=== PATIENT | female | born 1955 | race Caucasian/White ===

== ENCOUNTER 2016-06-01 15:56 | Emergency (ER) | payer OTHER ==
[2016-06-01 18:21] VITALS: BP 150/64
--- NOTE | 2016-06-01 19:50 | ED ---
Lower Extremity - HPI Summary HPI Summary: 61F presents with right foot injury to top of foot yesterday. She states she had a stroke a couple weeks ago and does not have much feeling on right side. She believes she stepped wrong off stair when get out of car as needs step stool to get in and out of car. states since then has had pain on top of foot. Has limited sensation at baseline since stroke. still able to move ankle and toes. - History of Current Complaint Chief Complaint: EDExtremityLower Stated Complaint: RT FOOT INJURY Time Seen by Provider: 06/01/16 18:42 Pain Intensity: 9 - Allergies/Home Medications Allergies/Adverse Reactions: Allergies Allergy/AdvReac Type Severity Reaction Status Date / Time No Known Allergies Allergy Verified 09/25/14 15:59 PMH/Surg Hx/FS Hx/Imm Hx Endocrine/Hematology History: Reports: Hx Diabetes Cardiovascular History: Reports: Hx Coronary Artery Disease, Hx Hypercholesterolemia, Hx Hypertension Denies: Hx Pacemaker/ICD GI History: Reports: Hx Gastroesophageal Reflux Disease Musculoskeletal History: Reports: Hx Arthritis - fingers Sensory History: Reports: Hx Contacts or Glasses Denies: Hx Hearing Aid Opthamlomology History: Reports: Hx Contacts or Glasses Neurological History: Reports: Hx CVA Psychiatric History: Reports: Hx Anxiety, Hx Depression Denies: Hx Panic Disorder - Cancer History Hx Chemotherapy: No Hx Radiation Therapy: No - Surgical History Surgery Procedure, Year, and Place: appendectomy 2008 Hx Anesthesia Reactions: No Infectious Disease History: Denies: Traveled Outside the [place] in Last 30 Days - Family History Known Family History: Positive: Cardiac Disease - Social History Alcohol Use: Occasionally Alcohol Amount: glass of wine Substance Use Type: Reports: None Smoking Status (MU): Never Smoked Tobacco Review of Systems Negative: Fever Negative: Chest Pain Negative: Shortness Of Breath Positive: Myalgia - right foot pain All Other Systems Reviewed And Are Negative: Yes Physical Exam Triage Information Reviewed: Yes Vital Signs On Initial Exam: Initial Vitals Temp Pulse Resp BP Pulse Ox 97.1 F 68 16 179/67 98 06/01/16 16:17 06/01/16 16:17 06/01/16 16:17 06/01/16 16:17 06/01/16 16:17 Vital Signs Reviewed: Yes Appearance: Positive: Well-Appearing Skin: Positive: Warm, Dry Head/Face: Positive: Normal Head/Face Inspection Eyes: Positive: Normal, Conjunctiva Clear Respiratory/Lung Sounds: Positive: Clear to Auscultation, Breath Sounds Present Cardiovascular: Positive: Normal, RRR Musculoskeletal: Positive: Strength/ROM Intact - of right foot, Other - good pulses, has limited sensition at baseline. able to feel pain over top of extensor tendons of right foot, no step off noted. capillary refill <2 secs Diagnostics - Vital Signs Vital Signs Temp Pulse Resp BP Pulse Ox 06/01/16 18:20 97.1 F 73 16 150/64 98 06/01/16 17:13 96.7 F 66 16 165/71 100 06/01/16 16:17 97.1 F 68 16 179/67 98 - Laboratory Lab Statement: Any lab studies that have been ordered have been reviewed, and results considered in the medical decision making process. - Radiology foot Xray Interpretation: Positive (See Comments) - IMPRESSION: Degenerative changes of the cuneiform metatarsal joints without fracture. Radiology Interpretation Completed By: Radiologist Lower Extremity Course/Dx - Course Course Of Treatment: 61F presents with right foot pain s/p possible stepping on it wrong yesterday. has decreased sensation in foot since stroke a couple weeks ago. able to move and walk on foot. states pain is greatest over top of foot. on exam pain noted along extensor digitorium tendons of foot. xray shows degenerative changes. unclear if pain is due to degenerative changes or due to tendonitis. will treat conservatively. patient understands and agrees with plan - Diagnoses Differential Diagnosis/HQI/PQRI: Positive: Contusion, Fracture (Closed), Sprain , Strain Provider Diagnoses: Right foot pain Discharge - Discharge Plan Condition: Good Disposition: HOME Patient Education Materials: Foot Sprain (ED) Referrals: Tenzin Samuels MD [Primary Care Provider] - Additional Instructions: Ice, elevate, rest Take Tylenol for pain every 6 hours Stretch out calf muscles Wear well fitting shoes Follow up with primary within 5 days Return to ED if develop any new or worsening symptoms
--- NOTE | 2016-06-01 20:03 | RAD ---
Indication: Right foot injury. 3 views of the right foot demonstrates degenerative changes of the cuneiforms metatarsal joint with dorsal osteophyte formation. No fracture is identified. IMPRESSION: Degenerative changes of the cuneiform metatarsal joints without fracture.
== END 2016-06-01 20:21 | disposition home or self-care (01) ==
LOC: ED 15:56
DX: M79.671 Pain in right foot (principal)
CPT/HCPCS: 99281

== ENCOUNTER 2016-06-15 23:43 | Emergency (ER) | payer OTHER ==
[2016-06-16] MEDS ORDERED: Aspirin Low Dose CHEW TAB* 81 MG PO ONE (03:38)
[2016-06-16] MEDS ORDERED: Azithromycin TAB* 250 MG PO ONE (04:26)
--- NOTE | 2016-06-16 05:14 | ED ---
Aaron Tamez Adam, scribed for Abhinav Ray on 06/16/16 at 0331 . Complex/Multi-Sys Presentation - HPI Summary HPI Summary: Pt is a 61 year old female presenting with chief complaint of chest congestion. She states that she has been coughing for 3 weeks now, producing yellowish/ green phlegm. She denies abdominal pain and fever. She denies tobacco use. She has chronic right-sided weakness s/p CVA. She is able to walk around with a cane. She denies asthma, COPD, and cardiac disease. - History Of Current Complaint Chief Complaint: EDUpperRespComplaint Time Seen by Provider: 06/16/16 03:16 Hx Obtained From: Patient Onset/Duration: Gradual Onset, Lasting Weeks, Still Present Timing: Constant Severity Currently: Moderate Severity Initially: Moderate Associated Signs And Symptoms: Positive: Cough - Producing yellowish/green phlegm, Other - Chest congestion. Negative: Abdominal Pain, Fever - Allergies/Home Medications Allergies/Adverse Reactions: Allergies Allergy/AdvReac Type Severity Reaction Status Date / Time No Known Allergies Allergy Verified 06/15/16 23:52 PMH/Surg Hx/FS Hx/Imm Hx Endocrine/Hematology History: Reports: Hx Diabetes Cardiovascular History: Reports: Hx Coronary Artery Disease, Hx Hypercholesterolemia, Hx Hypertension Denies: Hx Pacemaker/ICD GI History: Reports: Hx Gastroesophageal Reflux Disease Musculoskeletal History: Reports: Hx Arthritis - fingers Sensory History: Reports: Hx Contacts or Glasses Denies: Hx Hearing Aid Opthamlomology History: Reports: Hx Contacts or Glasses Neurological History: Reports: Hx CVA Psychiatric History: Reports: Hx Anxiety, Hx Depression Denies: Hx Panic Disorder - Cancer History Hx Chemotherapy: No Hx Radiation Therapy: No - Surgical History Surgery Procedure, Year, and Place: appendectomy 2008 Hx Anesthesia Reactions: No Infectious Disease History: No Infectious Disease History: Denies: Traveled Outside the [place] in Last 30 Days - Family History Known Family History: Positive: Cardiac Disease - Social History Occupation: Disabled Lives: With Family - Alcohol Use: Occasionally Alcohol Amount: glass of wine Hx Substance Use: No Substance Use Type: Reports: None Hx Tobacco Use: No Smoking Status (MU): Never Smoked Tobacco Review of Systems Negative: Fever Positive: Cough, Other - Chest congestion Negative: Abdominal Pain All Other Systems Reviewed And Are Negative: Yes Physical Exam Triage Information Reviewed: Yes Vital Signs On Initial Exam: Initial Vitals Temp Pulse Resp BP Pulse Ox 97.6 F 66 16 166/45 97 06/15/16 23:45 06/15/16 23:45 06/15/16 23:45 06/15/16 23:45 06/15/16 23:45 Vital Signs Reviewed: Yes Appearance: Positive: Well-Appearing, No Pain Distress Skin: Positive: Warm, Skin Color Reflects Adequate Perfusion, Dry Head/Face: Positive: Normal Head/Face Inspection Eyes: Positive: EOMI, EMILY ENT: Positive: Normal ENT inspection Neck: Positive: Supple, Nontender Respiratory/Lung Sounds: Positive: Clear to Auscultation, Breath Sounds Present Cardiovascular: Positive: RRR, Pulses are Symmetrical in both Upper and Lower Extremities Abdomen Description: Positive: Nontender, Soft Bowel Sounds: Positive: Present Musculoskeletal: Positive: Normal, Strength/ROM Intact Neurological: Positive: Other - Right hemiparesis s/p CVA Diagnostics - Vital Signs Vital Signs Temp Pulse Resp BP Pulse Ox 06/16/16 01:10 98.1 F 64 16 179/77 96 06/15/16 23:45 97.6 F 66 16 166/45 97 - Laboratory Lab Statement: Any lab studies that have been ordered have been reviewed, and results considered in the medical decision making process. - Radiology CXR Radiology Interpretation Completed By: ED Physician - Right lower lobe haziness. Re-Evaluation - Re-Evaluation First Eval Re-Evaluation Time: 04:25 - Discussed results of Chest X-Ray. Patient will sign out AMA. Complex Multi-Symp Course/Dx Course Of Treatment: Patient refuses to have EKG or any labs done. - Diagnoses Provider Diagnoses: Pneumonia Discharge - Discharge Plan Condition: Stable Disposition: AGAINST MEDICAL ADVICE Prescriptions: Azithromycin TAB* [Zithromax TAB (Z-GINGER) 250 mg #6 tabs] 250 mg PO DAILY #4 tab Patient Education Materials: Bacterial Pneumonia (ED) Referrals: Tenzin Samuels MD [Primary Care Provider] - Additional Instructions: Follow up with your Primary Care Provider. The documentation as recorded by the Aaron grijalva Adam accurately reflects the service I personally performed and the decisions made by , Abhinav Ray.
[2016-06-16 05:20] VITALS: BP 192/80
--- NOTE | 2016-06-16 09:56 | RAD ---
Indication: Shortness of breath. 2 views of the chest including dual energy PA views demonstrate no mediastinal shift. Heart is mildly enlarged. Lung perkins demonstrate no pleural fluid, pneumonia or pneumothorax. IMPRESSION: No active cardiopulmonary disease is identified.
== END 2016-06-16 04:35 | disposition left against medical advice (07) ==
LOC: ED 23:43
DX: J18.9 Pneumonia, unspecified organism (principal); R09.89 Other specified symptoms and signs involving the circulatory and respiratory systems; R05 Cough
CPT/HCPCS: 71020; 99283; A9270-GY

== ENCOUNTER 2018-03-31 15:05 | Inpatient (IN) | payer MEDICARE ==
[2018-03-31 15:41] LABS: Influenza A Molecular POSITIVE (Negative)
[2018-03-31] MEDS ORDERED: cefTRIAXone(*) 1 GM in NS 0.9% 50 ML* 50 ML IVPB ONE (16:04)
[2018-03-31] MEDS ORDERED: Azithromycin IV(*) 500 MG in NS 0.9% 250 ML* 250 ML IVPB ONE (16:04)
[2018-03-31] MEDS ORDERED: Oseltamivir CAP* 75 MG CAP PO ONE (16:04)
[2018-03-31] MEDS ORDERED: NS 0.9% IV ONE (16:06)
--- NOTE | 2018-03-31 16:41 | ED ---
Shortness of Breath - HPI Summary HPI Summary: A 62 y/o female presents to [facility] with a chief complaint of SOB since 03/28/18. She reports SOB, cough, fever, chills and a headache. A temperature of 100.6 is noted in the ED. The patient denies body aches, erythema (eyes), sore throat, chest pain, abdominal pain, vomiting, nausea, dysuria, hematuria, myalgia, edema , rash and dizziness. She does not wear O2 at home. At triage her O2 Sat was 87. In the ED room on O2 her O2 Sat was 92, BP was 179/139 and her HR was 136 bpm. The patient reports that she is a non-smoker. She has DM and takes a low dosage of insulin and metformin for DM. She claims that her sugars have been good and that she did get her flu shot this year. She denies a Hx of COPD or emphysema. Her PCP is Dr. Samuels. - History of Current Complaint Chief Complaint: EDShortnessOfBreath Hx Obtained From: Patient Onset/Duration: Sudden Onset, Lasting Days, Still Present Timing: Constant Current Severity: Moderate Dyspnea At: Rest Aggrevating Factors: Nothing Alleviating Factors: Oxygen Associated Signs & Symptoms: Cough (Productive), Fever, Chills - Allergy/Home Medications Allergies/Adverse Reactions: Allergies Allergy/AdvReac Type Severity Reaction Status Date / Time No Known Allergies Allergy Verified 06/15/16 23:52 Home Medications: Home Medications Aspirin 81 mg CHEW TAB* 81 mg PO DAILY 03/31/18 [History Confirmed 03/31/18] Atorvastatin* [Lipitor 80 MG*] 80 mg PO DAILY 03/31/18 [History Confirmed ] Clopidogrel TAB* [Plavix TAB*] 75 mg PO DAILY 03/31/18 [History Confirmed ] DULoxetine DR CAP* [Cymbalta CAP*] 30 mg PO DAILY 03/31/18 [History Confirmed ] DULoxetine DR CAP* [Cymbalta CAP*] 60 mg PO DAILY 03/31/18 [History Confirmed ] Hydrochlorothiazide TAB* [Hydrodiuril TAB*] 50 mg PO QAM 03/31/18 [History Confirmed 03/31/18] Insulin Glargine (Nf) [Toujeo Solostar Pen (NF)] 30 unit SUBCUT DAILY 03/31/18 [ History Confirmed 03/31/18] Liraglutide (NF) [Victoza (NF)] 1.8 mg SUBCUT DAILY 03/31/18 [History Confirmed 03/31/18] Lisinopril TAB* [Prinivil TAB 10 MG*] 40 mg PO DAILY 03/31/18 [History Confirmed 03/31/18] Metoprolol Tartrate TAB* [Lopressor TAB*] 50 mg PO TID 03/31/18 [History Confirmed 03/31/18] hydrALAZINE TAB* [Apresoline TAB*] 25 mg PO TID 03/31/18 [History Confirmed 06/13] metFORMIN* [Glucophage 1000 MG TAB *] 1,000 mg PO BID 03/31/18 [History Confirmed 03/31/18] PMH/Surg Hx/FS Hx/Imm Hx Endocrine/Hematology History: Reports: Hx Diabetes Cardiovascular History: Reports: Hx Coronary Artery Disease, Hx Hypercholesterolemia, Hx Hypertension - CONTROLLED ON MEDS Denies: Hx Pacemaker/ICD GI History: Reports: Hx Gastroesophageal Reflux Disease Musculoskeletal History: Reports: Hx Arthritis - fingers Sensory History: Reports: Hx Contacts or Glasses Denies: Hx Hearing Aid Opthamlomology History: Reports: Hx Contacts or Glasses Neurological History: Reports: Hx CVA Psychiatric History: Reports: Hx Anxiety, Hx Depression Denies: Hx Panic Disorder - Cancer History Hx Chemotherapy: No Hx Radiation Therapy: No - Surgical History Surgery Procedure, Year, and Place: appendectomy 2008 Hx Anesthesia Reactions: No Infectious Disease History: No Infectious Disease History: Denies: Traveled Outside the [place] in Last 30 Days - Family History Known Family History: Positive: Cardiac Disease - Social History Alcohol Use: Occasionally Alcohol Amount: glass of wine Hx Substance Use: No Substance Use Type: Reports: None Hx Tobacco Use: No Smoking Status (MU): Never Smoked Tobacco Review of Systems Positive: Fever, Chills Negative: Erythema Negative: Sore Throat Negative: Chest Pain Positive: Shortness Of Breath, Cough Negative: Abdominal Pain, Vomiting, Nausea Negative: dysuria, hematuria Musculoskeletal: Negative - body aches Negative: Myalgia, Edema Negative: Rash Positive: Headache All Other Systems Reviewed And Are Negative: Yes Physical Exam - Summary Physical Exam Summary: Constitutional: Well-developed, Well-nourished, Alert. (-) Distressed Skin: Hot to the touch, Dry HENT: Normocephalic; Atraumatic Eyes: Conjunctiva normal Neck: Musculoskeletal ROM normal neck. (-) JVD, (-) Stridor, (-) Tracheal deviation Cardio: Rhythm regular, rate normal, Heart sounds normal; Intact distal pulses; The pedal pulses are 2+ and symmetric. Radial pulses are 2+ and symmetric. (-) Murmur Pulmonary/Chest wall: Effort normal. (-) Respiratory distress, (+) Wheezes, (-) Rales Abd: Soft, (-) epigastric tenderness, (-) Distension, (-) Guarding, (-) Rebound Musculoskeletal: (-) Edema Lymph: (-) Cervical adenopathy Neuro: Alert, Oriented x3 Psych: Mood and affect Normal Triage Information Reviewed: Yes Vital Signs On Initial Exam: Initial Vitals Temp Pulse Resp BP Pulse Ox 99.2 F 131 24 162/79 87 03/31/18 15:10 03/31/18 15:10 03/31/18 15:10 03/31/18 15:10 03/31/18 15:10 Vital Signs Reviewed: Yes Diagnostics - Vital Signs Vital Signs Temp Pulse Resp BP Pulse Ox 03/31/18 15:10 99.2 F 131 24 162/79 87 - Laboratory Lab Results: Lab Results 03/31/18 Range/Units 15:36 Influenza A (Rapid) Positive A (Negative) Result Diagrams: 04/02/18 05:56 04/02/18 05:56 Lab Statement: Any lab studies that have been ordered have been reviewed, and results considered in the medical decision making process. - Radiology CXR Radiology Interpretation Completed By: Radiologist Summary of Radiographic Findings: 1. BILATERAL INFILTRATES. 2. FINDINGS SUGGESTIVE OF COPD. ED physician has reviewed this imaging report. Course/Dx - Course Course Of Treatment: A 62 y/o female presents to [facility] with a chief complaint of SOB since 03/28/18. She reports SOB, cough, fever, chills and a headache. The physical exam revelaed that the patient was wheezing and hot to the touch. CXR impression: 1. BILATERAL INFILTRATES. 2. FINDINGS SUGGESTIVE OF COPD. Lab results obtained. She was influenza A positive. Lactic acid high at .6 and Troponin high at 0.04 at 16:53. In the ED course the patient was given Duoneb INH, Tylenol PO and Tamiflu PO. Case discussed with Dr. Lay, hospitalist, who accepted the patient for admission. - Diagnoses Provider Diagnoses: Influenza, Hypoxia, Sepsis, Community acquired pneumonia - Physician Notifications Discussed Care of Patient With: Sebas Lay Time Discussed With Above Provider: 16:59 Instructed by Provider To: Admit As Inpatient Discharge - Sign-Out/Discharge Documenting (check all that apply): Patient Departure - admit Patient Received Moderate/Deep Sedation with Procedure: No - Discharge Plan Condition: Improved Disposition: ADMITTED TO [facility] - Billing Disposition and Condition Condition: IMPROVED Disposition: Admitted to [facility] - Attestation Statements Document Initiated by Scribe: Yes Documenting Scribe: Ricky Giron Provider For Whom Cristo is Documenting (Include Credential): Tenzin Garza MD Scribe Attestation: Ricky Tamez, scribed for Tenzin Garza MD on 04/04/18 at 1031. Scribe Documentation Reviewed: Yes Provider Attestation: The documentation as recorded by the Ricky grijalva accurately reflects the service I personally performed and the decisions made by Tenzin chavez MD Status of Scribe Document: Viewed
[2018-03-31] MEDS ORDERED: Acetaminophen TAB* 325 MG PO ONE (16:43)
[2018-03-31] MEDS ORDERED: Albuterol/Ipratropium NEB.SOL* Albuterol 2.5 MG/Ipratropium 0.5 MG 3 ML INH ONE (16:43)
[2018-03-31 17:04] LABS: ABS Basophils 0.1 10^3/ul (0-0.2); ABS Eosinophils 0 10^3/ul (0-0.6); ABS Monocytes 0.9 10^3/ul (0-0.8); ABS Nucleated RBC 0 10^3/ul; Eosinophil % 0.2 %; Hematocrit 42 % (35-47); Hemoglobin 13.9 g/dl (12.0-16.0); Lymphocyte % 10.8 %; Mean Corpuscular HGB Conc 33 g/dl (31-36); Mean Corpuscular Hemoglobin 29 pg (27-31); Mean Corpuscular Volume 86 fL (80-97); Mean Platelet Volume 10.2 fL (7.4-10.4); Nucleated Red Blood Cells % 0.1; Platelet Count 279 10^3/ul (150-450); Red Blood Count 4.88 10^6/ul (4.00-5.40); Red Cell Distribution Width 14 % (10.5-15)
[2018-03-31 17:30] LABS: Troponin I 0.04 ng/mL (<0.04)
[2018-03-31 17:32] LABS: Activated Partial Thrombo Time 27.3 seconds (26.0-36.3); INR 0.98 (0.77-1.02)
[2018-03-31 17:38] LABS: Albumin 4.3 g/dL (3.2-5.2); Albumin/Globulin Ratio 1.2 (1-3); BUN/Creatinine Ratio 10.2 (8-20); Calcium 9.4 mg/dL (8.6-10.3); EGFR African American 56.2 (>60); EGFR Non-African American 46.4 (>60); Globulin 3.7 g/dL (2-4); Potassium 3.7 mmol/L (3.5-5.0); Total Bilirubin 0.7 mg/dL (0.2-1.0)
[2018-03-31 17:54] LABS: C Reactive Protein 136.67 mg/L (<8.01)
[2018-03-31] MEDS ORDERED: Dextrose 50% Syringe 50 ML* 25 GM/50 ML SYRINGE IV PUSH PRN (18:25)
[2018-03-31] MEDS ORDERED: Acetaminophen TAB* 325 MG PO PRN (18:44)
[2018-03-31] MEDS ORDERED: NS 0.9% 1000 ML** 1,000 ML IV SCH (19:00)
[2018-03-31 20:55] LABS: Urine Appearance Clear; Urine Bacteria Absent (Absent); Urine Bilirubin Negative (Negative); Urine Blood Negative (Negative); Urine Color Yellow; Urine Glucose Negative (Negative); Urine Ketones Negative (Negative); Urine Nitrite Negative (Negative); Urine Protein 1+(30 mg/dL) (Negative); Urine Red Blood Cell Trace(0-2/hpf) (Absent); Urine Specific Gravity 1.008 (1.010-1.030); Urine Squamous Epithelial Cell Present (Absent); Urine Urobilinogen Negative (Negative); Urine White Blood Cell 1+(6-10/hpf) (Absent)
--- NOTE | 2018-03-31 21:33 | HP ---
HISTORY AND PHYSICAL: DATE OF ADMISSION: 03/31/18 ADMITTING PROVIDER: Jerome Aviles MD PRIMARY CARE PROVIDER: Dr. Tenzin Samuels CHIEF COMPLAINT: Fevers, chills, shortness of breath, nonproductive cough. HISTORY OF PRESENT ILLNESS: Cristal Osorio is a 62-year-old female with past medical history of multiple CVAs; hypertension, on multiple agents; hyperlipidemia; insulin-dependent diabetes mellitus; anxiety; depression; GERD, who on 03/28/18, three days prior to admission, started to develop fevers and the sensation of hot and cold alternating next day along with shortness of breath and a nonproductive cough. She had a headache the next day, symptoms have been progressive and has not been able to sleep very well. Of note, both her son and grandson, who she lives with, were diagnosed with influenza the week prior. She presented to the [facility] and was noted to have a fever reportedly of 100.6, was tachycardic to the 130s and saturating 87% on room air initially. Chest x-ray was concerning for bilateral infiltrates and a rapid flu swab was positive for influenza A. She has a lactic acidosis of 3.6, CRP of 136, troponin of 0.04. She denies any chest pain. Her mobility is limited ever since her strokes of 2010, and especially 2016. She was referred to the hospitalist service for sepsis secondary to influenza with bilateral pneumonia source. PAST MEDICAL HISTORY: CVAs in 2010 and 2016, hypertension, hyperlipidemia, anxiety, depression, GERD. PAST SURGICAL HISTORY: Appendectomy. MEDICATIONS: Include: 1. Metoprolol tartrate 50 mg t.i.d. 2. Lisinopril 40 mg daily. 3. Victoza 1.8 mg subcutaneous daily. 4. Toujeo 30 units daily. 5. Hydralazine 25 mg t.i.d. 6. Duloxetine 30 plus 60 mg for a total of 90 mg daily. 7. Metformin 1000 mg p.o. b.i.d. 8. Hydrochlorothiazide 50 mg daily. 9. Atorvastatin 80 mg daily. 10. Aspirin 81 mg daily. 11. Plavix 75 mg daily. ALLERGIES: No known drug allergies. FAMILY HISTORY: Mother of heart attack at age 59, father of heart attack at age 72. She has 2 brothers, one of who has had what sounds like an LVAD and is being evaluated for possible heart transplant. It sounds like 1 sister has had open heart surgery. SOCIAL HISTORY: The patient denies any smoking history. Denies alcohol or drug use. Currently is disabled after her strokes. Medical surrogate is , Izaiah Osorio. She desires to be a full code. REVIEW OF SYSTEMS: A complete 14-point review of systems is negative except as per HPI. She denies any abdominal pain, chest pain, nausea, vomiting, diarrhea , constipation, rashes, recent travel, neck stiffness, blurry vision. She does attest chronic right lower extremity paresthesias and numbness since her stroke and some reduced strength on the right side of her body. She does not need any assistive devices with walking, although she previously did spend 3 months in [facility] in 2016, recovering from her stroke. PHYSICAL EXAMINATION GENERAL APPEARANCE: In no acute distress. VITAL SIGNS: Temperature here 99.2; pulse rate 131; respiratory rate 24; satting initially 87% on room air, currently 97% on 3 L; blood pressure 162/79. HEENT: Normocephalic, atraumatic. Pupils are equal, round, and reactive to light. Extraocular motions are intact. No scleral icterus. Moist mucous membranes. NECK: No cervical lymphadenopathy. Neck supple. LUNGS: Some rhonchi at the left mid lung. No wheezing or rales. CARDIOVASCULAR: Tachycardic. Systolic 3/6 ejection murmur across the precordium. ABDOMEN: Soft, nontender, nondistended, but obese. EXTREMITIES: Warm, well perfused. No peripheral edema. NEUROLOGIC: Cranial nerves II through XII intact. Set Up Mechanic Automatic Line strength intact. She has decreased sensation in the right lower extremity. She has intact plantar and dorsiflexion. SKIN: No lesions or rashes. DIAGNOSTIC STUDIES/LABORATORY DATA: White count 9.0, hematocrit 42, hemoglobin 13.9, platelet 279. INR 0.98. Sodium 139, potassium 3.7, chloride 99, carbon dioxide 28, anion gap 12, BUN 12, creatinine 1.18, GFR 46, glucose 183, lactic acid 3.6, calcium 9.4. Total bili 0.7, AST 21, ALT 17, alk phos 79. Troponin 0.04. CRP 136.7. Albumin 4.3. Influenza A serology positive. Urinalysis pending. IMAGING: Chest x-ray demonstrated bilateral infiltrates and findings suggestive of COPD, more specifically, there are patchy infiltrates in the right lung field and left lung base. EKG demonstrates sinus tachycardia, heart rate 120s, Q waves in lead III. Normal axis. Wandering baseline. No ST elevations or depressions and poor R- wave progression, QTc of 492. ASSESSMENT AND PLAN: Ms. Cristal Osorio is a 62-year-old female with past medical history of resistant hypertension on 4 agents, insulin-dependent diabetes mellitus, hyperlipidemia, gastroesophageal reflux disease, anxiety, depression, presenting with sepsis secondary to bilateral pneumonia and influenza A in the setting of familial contacts with influenza. She has a lactic acidosis of 3.6. She is getting a sepsis fluid bolus in the emergency room. She has been started on Tamiflu. I will continue that renally dosed at 30 b.i.d. she has gotten ceftriaxone and azithromycin for community-acquired pneumonia, potentially post influenza streptococcal pneumonia though might be a bit early for that. We will repeat the lactic acid to normalize and get a strep and legionella urine antigens, sputum culture, follow up blood cultures. She is tachypneic, tachycardic and has lactic acidosis. Can continue her metoprolol 50 t.i.d. Blood pressure is preserved, in fact hypertensive. I am going to continue her lisinopril 40 tomorrow, hydrochlorothiazide 50 tomorrow, and hydralazine 25 p.o. t.i.d. Continue her Cymbalta 90 mg total daily. Continue hHer aspirin and Plavix for history of stroke. We are going to continue her on maintenance fluid overnight, 100 cc an hour for 15 hours, Tylenol p.r.n. for fevers or headaches. For her elevated troponins, no ischemic changes on EKG, I suspect some demand ischemia in the setting of sepsis. We will trend q.3 hours or until peak, repeat EKG in the morning if still concerned. She denies any chest pain. I note she had a negative stress test workup last year and an echocardiogram 04/03/17 with its preserved ejection fraction of 60% to 65% and [id number] aortic stenosis. Does have prominent aortic stenosis murmur on exam here in the setting of hyperdynamic tachycardia. She is admitted to inpatient status. She is a full code. Medical surrogate is , Izaiah Osorio. [id number]/CPS #: [id number] MTDD
[2018-03-31] MEDS: Insulin GLARGINE(*) 1 UNITS UNIT SUBCUT SCH (22:04)
[2018-03-31] MEDS: Metoprolol Tartrate TAB* 50 mg PO SCH (22:04)
[2018-03-31] MEDS: Insulin LISPRO* 1 UNITS UNIT SUBCUT SCH (22:04)
[2018-03-31] MEDS: Enoxaparin(*) 40 MG/0.4 ML SYR SUBCUT SCH (22:05)
[2018-04-01] MEDS ORDERED: NS 0.9% 1000 ML** 1,000 ML IV SCH (00:52)
[2018-04-01 07:21] LABS: ABS Basophils 0.1 10^3/ul (0-0.2); ABS Eosinophils 0.1 10^3/ul (0-0.6); ABS Lymphocytes 1.4 10^3/ul (1.0-4.8); ABS Neutrophils 5.4 10^3/ul (1.5-7.7); ABS Nucleated RBC 0 10^3/ul; Eosinophil % 1.2 %; Hematocrit 37 % (35-47); Hemoglobin 12.3 g/dl (12.0-16.0); Mean Corpuscular HGB Conc 34 g/dl (31-36); Mean Corpuscular Hemoglobin 29 pg (27-31); Mean Corpuscular Volume 86 fL (80-97); Mean Platelet Volume 9.6 fL (7.4-10.4); Nucleated Red Blood Cells % 0; Platelet Count 242 10^3/ul (150-450); Red Blood Count 4.26 10^6/ul (4.00-5.40); Red Cell Distribution Width 15 % (10.5-15)
[2018-04-01] MEDS: Insulin LISPRO* 1 UNITS UNIT SUBCUT SCH ×4 (07:29→21:46)
[2018-04-01 07:40] LABS: BUN/Creatinine Ratio 11.2 (8-20); Calcium 8.6 mg/dL (8.6-10.3); EGFR African American 77.8 (>60); EGFR Non-African American 64.3 (>60); Potassium 3.7 mmol/L (3.5-5.0)
[2018-04-01] MEDS ORDERED: Insulin GLARGINE(*) 1 UNITS UNIT SUBCUT SCH (08:00)
[2018-04-01] MEDS: DULoxetine DR CAP* 30 MG CAP.DR PO SCH (08:02)
[2018-04-01] MEDS: Metoprolol Tartrate TAB* 50 mg PO SCH ×3 (08:02→21:46)
[2018-04-01] MEDS: hydrALAZINE TAB* 25 MG PO SCH ×3 (08:02→21:45)
[2018-04-01] MEDS: Atorvastatin* 80 MG TAB PO SCH (08:02)
[2018-04-01] MEDS: Oseltamivir CAP* 30 MG CAP PO SCH ×2 (08:02→21:45)
[2018-04-01] MEDS: Hydrochlorothiazide TAB* 50 MG PO SCH (08:02)
[2018-04-01] MEDS: DULoxetine DR CAP* 60 MG CAP.DR PO SCH (08:02)
[2018-04-01] MEDS: Lisinopril TAB* 10 MG PO SCH (08:03)
[2018-04-01] MEDS: Aspirin 81 mg CHEW TAB* 81 MG TAB.CHEW PO SCH (08:03)
[2018-04-01] MEDS: Clopidogrel TAB* 75 MG PO SCH (08:03)
[2018-04-01] MEDS ORDERED: Pneumococcal *Vac Polyvalent 0.5 ML VIAL IM ONE (10:00)
--- NOTE | 2018-04-01 10:54 | PN ---
Subjective Date of Service: 04/01/18 Interval History: Less SOB today, less cough. No new c/o. Objective Active Medications: Acetaminophen (Tylenol Tab*) 650 mg PO Q6H PRN PRN Reason: FEVER/HEADACHE Aspirin (Aspirin 81 Mg Chew Tab*) 81 mg PO DAILY [facility] [place] Last Admin: 04/01/18 08:03 Dose: 81 mg Atorvastatin Calcium (Lipitor*) 80 mg PO DAILY [facility] [place] Last Admin: 04/01/18 08:02 Dose: 80 mg Clopidogrel Bisulfate (Plavix Tab*) 75 mg PO DAILY [facility] [place] Last Admin: 04/01/18 08:03 Dose: 75 mg Dextrose (D50w Syringe 50 Ml*) 12.5 gm IV PUSH .FOR FS < 60 - SS PRN PRN Reason: FS < 60 Duloxetine HCl (Cymbalta Cap*) 60 mg PO DAILY [facility] [place] Last Admin: 04/01/18 08:02 Dose: 60 mg Duloxetine HCl (Cymbalta Cap*) 30 mg PO DAILY [facility] [place] Last Admin: 04/01/18 08:02 Dose: 30 mg Enoxaparin Sodium (Lovenox(*)) 40 mg SUBCUT Q24H [facility] [place] Last Admin: 03/31/18 22:05 Dose: 40 mg Hydralazine HCl (Apresoline Tab*) 25 mg PO TID [facility] [place] Last Admin: 04/01/18 08:02 Dose: 25 mg Hydrochlorothiazide (Hydrodiuril Tab*) 50 mg PO QAM [facility] [place] Last Admin: 04/01/18 08:02 Dose: 50 mg Ceftriaxone Sodium 1 gm/ (Sodium Chloride) 50 mls @ 200 mls/hr IVPB Q24H [facility] [place] Azithromycin 500 mg/ Sodium (Chloride) 250 mls @ 250 mls/hr IVPB Q24H [facility] [place] Stop: 04/03/18 17:59 Insulin Glargine (Lantus(*)) 25 units SUBCUT Q24H [facility] [place] Last Admin: 03/31/18 22:04 Dose: 25 units Insulin Human Lispro (Humalog*) 0 units SUBCUT ACHS [facility] [place]; Protocol Last Admin: 04/01/18 07:29 Dose: Not Given Lisinopril (Prinivil Tab*) 40 mg PO DAILY [facility] [place] Last Admin: 04/01/18 08:03 Dose: 40 mg Metoprolol Tartrate (Lopressor Tab*) 50 mg PO 0900,1400,2100 [facility] [place] Last Admin: 04/01/18 08:02 Dose: 50 mg Oseltamivir Phosphate (Tamiflu Cap*) 30 mg PO BID [facility] [place] Stop: 04/05/18 21:01 Last Admin: 04/01/18 08:02 Dose: 30 mg Vital Signs - 8 hr 04/01/18 04/01/18 04/01/18 03:48 03:57 05:03 Temperature 97.3 F 97.3 F Pulse Rate 97 97 Respiratory 20 20 Rate Blood Pressure 174/137 183/74 183/74 (mmHg) O2 Sat by Pulse 95 95 Oximetry 04/01/18 04/01/18 07:21 07:30 Temperature 97.6 F Pulse Rate 88 Respiratory 20 20 Rate Blood Pressure 192/82 (mmHg) O2 Sat by Pulse 98 98 Oximetry Oxygen Devices in Use Now: Simple Face Mask Appearance: Alert, in a chair. In good spirits. Looks comfortable. No cough during my visit. Eyes: No Scleral Icterus Respiratory: Symmetrical Chest Expansion and Respiratory Effort, Clear to Auscultation, Clear to Percussion Cardiovascular: RRR, No Edema, - - 3/6 systolic murmur across precordium Extremities: No Edema, No Clubbing, Cyanosis, - Skin: No Rash or Ulcers, No Nodules or Sclerosis, - Neurological: Alert and Oriented x 3, NL Sensation Result Diagrams: 04/01/18 07:09 04/01/18 07:09 Additional Lab and Data: Lab Results 03/31/18 Range/Units 15:36 Influenza A (Rapid) Positive A (Negative) Microbiology and Other Data: Microbiology 03/31/18 20:00 Legionella Urinary Antigen - Final Urine Negative Legionella Antigen Streptococcus pneumoniae Ag Screen - Final Negative S. pneumo Antigen 03/31/18 15:21 Influenza Types A,B Antigen - Final Nasal Specimen received for Influenza A/B Molecular testing Assess/Plan/Problems-Billing Assessment: - Patient Problems (1) Pneumonia Current Visit: Yes Status: Acute Code(s): J18.9 - PNEUMONIA, UNSPECIFIED ORGANISM SNOMED Code(s): 492564481 Comment: Continue azithr/ceftr, add guaifenesin. (2) Influenza A Current Visit: Yes Status: Acute Code(s): J10.1 - FLU DUE TO OTH IDENT INFLUENZA VIRUS W OTH RESP MANIFEST SNOMED Code(s): 797043995 Comment: Complete oseltamivir course. (3) DM2 (diabetes mellitus, type 2) Current Visit: No Status: Acute Priority: Medium Comment: Continue Lantus and SS Lispro, can resume her usual diabetic meds at home. (4) Stroke Current Visit: No Status: Acute Priority: High Code(s): I63.9 - CEREBRAL INFARCTION, UNSPECIFIED SNOMED Code(s): 914886172 Comment: MRI showed multiple infarcts in L parietal and frontal lobes. Continue statin, clopidogrel. (5) Morbid obesity Current Visit: Yes Status: Acute Code(s): E66.01 - MORBID (SEVERE) OBESITY DUE TO EXCESS CALORIES SNOMED Code(s): 017452613 Comment: BMI 47.4.
[2018-04-01] MEDS: guaiFENesin LIQ* 100 MG/5 ML UDC PO SCH ×3 (13:24→21:46)
[2018-04-01] MEDS ORDERED: cefTRIAXone(*) 1 GM in NS 0.9% 50 ML* 50 ML IVPB SCH ×2 (18:00→19:30)
[2018-04-01] MEDS ORDERED: Azithromycin IV(*) 500 MG in NS 0.9% 250 ML* 250 ML IVPB SCH (18:00)
[2018-04-01] MEDS: Enoxaparin(*) 40 MG/0.4 ML SYR SUBCUT SCH (21:45)
[2018-04-01] MEDS: Insulin GLARGINE(*) 1 UNITS UNIT SUBCUT SCH (21:45)
[2018-04-02 06:37] LABS: ABS Basophils 0.1 10^3/ul (0-0.2); ABS Eosinophils 0.3 10^3/ul (0-0.6); ABS Monocytes 0.9 10^3/ul (0-0.8); ABS Neutrophils 4.7 10^3/ul (1.5-7.7); ABS Nucleated RBC 0 10^3/ul; Eosinophil % 4.1 %; Hematocrit 36 % (35-47); Lymphocyte % 24.9 %; Mean Corpuscular HGB Conc 33 g/dl (31-36); Mean Corpuscular Hemoglobin 28 pg (27-31); Mean Corpuscular Volume 85 fL (80-97); Mean Platelet Volume 9.7 fL (7.4-10.4); Nucleated Red Blood Cells % 0.1; Platelet Count 257 10^3/ul (150-450); Red Blood Count 4.25 10^6/ul (4.00-5.40); Red Cell Distribution Width 15 % (10.5-15); White Blood Count 8.1 10^3/ul (3.5-10.8)
[2018-04-02 06:56] LABS: Calcium 8.8 mg/dL (8.6-10.3); EGFR African American 85.5 (>60); EGFR Non-African American 70.6 (>60); Potassium 3.4 mmol/L (3.5-5.0)
[2018-04-02] MEDS: Insulin LISPRO* 1 UNITS UNIT SUBCUT SCH (08:20)
[2018-04-02] MEDS: Atorvastatin* 80 MG TAB PO SCH (09:23)
[2018-04-02] MEDS: Lisinopril TAB* 10 MG PO SCH (09:23)
[2018-04-02] MEDS: DULoxetine DR CAP* 60 MG CAP.DR PO SCH (09:23)
[2018-04-02] MEDS: DULoxetine DR CAP* 30 MG CAP.DR PO SCH (09:24)
[2018-04-02] MEDS: Oseltamivir CAP* 30 MG CAP PO SCH (09:24)
[2018-04-02] MEDS: hydrALAZINE TAB* 25 MG PO SCH (09:24)
[2018-04-02] MEDS: Clopidogrel TAB* 75 MG PO SCH (09:24)
[2018-04-02] MEDS: Hydrochlorothiazide TAB* 50 MG PO SCH (09:25)
[2018-04-02] MEDS: guaiFENesin LIQ* 100 MG/5 ML UDC PO SCH (09:25)
[2018-04-02] MEDS: Metoprolol Tartrate TAB* 50 mg PO SCH (09:25)
[2018-04-02] MEDS: Aspirin 81 mg CHEW TAB* 81 MG TAB.CHEW PO SCH (09:25)
--- NOTE | 2018-04-02 10:15 | PN ---
Subjective Date of Service: 04/02/18 Interval History: Time spent on discharge including exam of pt, discussion with patient, CM, nurse , pharmacist, and review of EMR and preparation of discharge documents 45 minutes. Objective Active Medications: Acetaminophen (Tylenol Tab*) 650 mg PO Q6H PRN PRN Reason: FEVER/HEADACHE Last Admin: 04/01/18 17:18 Dose: 650 mg Aspirin (Aspirin 81 Mg Chew Tab*) 81 mg PO DAILY [facility] Last Admin: 04/02/18 09:25 Dose: 81 mg Atorvastatin Calcium (Lipitor*) 80 mg PO DAILY [facility] Last Admin: 04/02/18 09:23 Dose: 80 mg Azithromycin (Zithromax Tab*) 250 mg PO DAILY [facility] Cefuroxime Axetil (Ceftin Tab(*)) 500 mg PO BID [facility] Clopidogrel Bisulfate (Plavix Tab*) 75 mg PO DAILY [facility] Last Admin: 04/02/18 09:24 Dose: 75 mg Dextrose (D50w Syringe 50 Ml*) 12.5 gm IV PUSH .FOR FS < 60 - SS PRN PRN Reason: FS < 60 Duloxetine HCl (Cymbalta Cap*) 60 mg PO DAILY [facility] Last Admin: 04/02/18 09:23 Dose: 60 mg Duloxetine HCl (Cymbalta Cap*) 30 mg PO DAILY [facility] Last Admin: 04/02/18 09:24 Dose: 30 mg Enoxaparin Sodium (Lovenox(*)) 40 mg SUBCUT Q24H [facility] Last Admin: 04/01/18 21:45 Dose: 40 mg Guaifenesin (Robitussin*) 10 ml PO QID [facility] Last Admin: 04/02/18 09:25 Dose: Not Given Hydralazine HCl (Apresoline Tab*) 25 mg PO TID [facility] Last Admin: 04/02/18 09:24 Dose: 25 mg Hydrochlorothiazide (Hydrodiuril Tab*) 50 mg PO QAM [facility] Last Admin: 04/02/18 09:25 Dose: 50 mg Insulin Glargine (Lantus(*)) 25 units SUBCUT Q24H [facility] Last Admin: 04/01/18 21:45 Dose: 25 units Insulin Human Lispro (Humalog*) 0 units SUBCUT ACHS [facility]; Protocol Last Admin: 04/02/18 08:20 Dose: Not Given Lisinopril (Prinivil Tab*) 40 mg PO DAILY [facility] Last Admin: 04/02/18 09:23 Dose: 40 mg Metoprolol Tartrate (Lopressor Tab*) 50 mg PO 0900,1400,2100 [facility] Last Admin: 04/02/18 09:25 Dose: 50 mg Oseltamivir Phosphate (Tamiflu Cap*) 30 mg PO BID [facility] Stop: 04/05/18 21:01 Last Admin: 04/02/18 09:24 Dose: 30 mg Vital Signs - 8 hr 04/02/18 04/02/18 04/02/18 04:14 08:00 08:10 Temperature 98.0 F 97.9 F Pulse Rate 78 74 Respiratory 16 16 16 Rate Blood Pressure 152/58 157/76 (mmHg) O2 Sat by Pulse 93 90 98 Oximetry Oxygen Devices in Use Now: OxyMask Result Diagrams: 04/02/18 05:56 04/02/18 05:56 Additional Lab and Data: Lab Results 03/31/18 Range/Units 15:36 Influenza A (Rapid) Positive A (Negative) Microbiology and Other Data: Microbiology 03/31/18 20:00 Legionella Urinary Antigen - Final Urine Negative Legionella Antigen Streptococcus pneumoniae Ag Screen - Final Negative S. pneumo Antigen 03/31/18 15:21 Influenza Types A,B Antigen - Final Nasal Specimen received for Influenza A/B Molecular testing Assess/Plan/Problems-Billing Assessment: - Patient Problems (1) Pneumonia Current Visit: Yes Status: Acute Code(s): J18.9 - PNEUMONIA, UNSPECIFIED ORGANISM SNOMED Code(s): 224225916 Comment: Continue azithr/ceftr, add guaifenesin. (2) Influenza A Current Visit: Yes Status: Acute Code(s): J10.1 - FLU DUE TO OTH IDENT INFLUENZA VIRUS W OTH RESP MANIFEST SNOMED Code(s): 337134595 Comment: Complete oseltamivir course. (3) DM2 (diabetes mellitus, type 2) Current Visit: No Status: Acute Priority: Medium Comment: Continue Lantus and SS Lispro, can resume her usual diabetic meds at home. (4) Stroke Current Visit: No Status: Acute Priority: High Code(s): I63.9 - CEREBRAL INFARCTION, UNSPECIFIED SNOMED Code(s): 700141839 Comment: MRI showed multiple infarcts in L parietal and frontal lobes. Continue statin, clopidogrel. (5) Morbid obesity Current Visit: Yes Status: Acute Code(s): E66.01 - MORBID (SEVERE) OBESITY DUE TO EXCESS CALORIES SNOMED Code(s): 260956283 Comment: BMI 47.4.
--- NOTE | 2018-04-02 11:01 | DS ---
CC: Dr. Samuels DISCHARGE SUMMARY: DATE OF ADMISSION: DATE OF DISCHARGE: 04/02/18 HISTORY: This 62-year-old woman presented with fever, chills, shortness of breath, and a nonproducti ve cough. Her history is detailed in the admission note. She had bilateral pulmonary infiltrates. Rapid flu swab was positive for influenza A. She had a temperature of 100.6 and was tachycardic in [facility] emergency room. She was treated with ceftriaxone and azithromycin and oseltamivir. She did very well in the hospital . She felt much better by the time of discharge and looked well. She will complete a 5-day course o f oseltamivir at a reduced dose due to her calculated creatinine clearance of 51 on the day of discha rge. It was slightly lower on admission as well. Her renal function did improve with hydration and treatment of her infections. FINAL DIAGNOSES: 1. Pneumonia. 2. Influenza A. 3. Diabetes. 4. History of stroke. 5. Morbid obesity. DISCHARGE MEDICATIONS: 1. Azithromycin 250 mg daily for 3 days. 2. Guaifenesin liquid 10 mL 4 times a day. 3. Oseltamivir 30 mg b.i.d. for 7 doses. 4. Cefuroxime 500 mg b.i.d. 5. Glargine insulin 30 units daily. 6. Hydralazine 25 mg t.i.d. 7. Duloxetine 30 mg plus 60 mg daily. 8. Liraglutide 1.8 mg subcu daily. 9. Metformin 1000 mg b.i.d. 10. Hydrochlorothiazide 50 mg daily. 11. Atorvastatin 80 mg daily. 12. Lisinopril 40 mg daily. 13. Metoprolol tartrate 50 mg t.i.d. 14. Clopidogrel 75 mg daily. 15. Aspirin 81 mg daily. CONDITION ON DISCHARGE: Improved. DISPOSITION ON DISCHARGE: Discharged home. [id number]/[facility] #: [id number]
[2018-04-02 12:05] VITALS: BP 119/61
[2018-04-02] MEDS ORDERED: Azithromycin TAB* 250 MG PO SCH (19:00)
[2018-04-02] MEDS ORDERED: ceFUROXime TAB(*) 250 MG PO SCH (21:00)
[2018-04-02] MEDS ORDERED: Oseltamivir CAP* 75 MG CAP PO SCH (21:00)
== END 2018-04-02 13:45 | disposition home or self-care (01) | DRG 871 ==
LOC: ED 15:05 → MEDTELE 18:19
PROVIDERS: ADMIT Internal Medicine; ATTEND Internal Medicine
DX: A41.9 Sepsis, unspecified organism (principal); J10.00 Influenza due to other identified influenza virus with unspecified type of pneumonia; Z68.42 Body mass index [BMI] 45.0-49.9, adult; I69.351 Hemiplegia and hemiparesis following cerebral infarction affecting right dominant side; I24.8 Other forms of acute ischemic heart disease; E66.01 Morbid (severe) obesity due to excess calories; E11.9 Type 2 diabetes mellitus without complications; I10 Essential (primary) hypertension; E78.5 Hyperlipidemia, unspecified; F41.9 Anxiety disorder, unspecified; F32.9 Major depressive disorder, single episode, unspecified; K21.9 Gastro-esophageal reflux disease without esophagitis; R20.2 Paresthesia of skin; Z79.01 Long term (current) use of anticoagulants; Z79.84 Long term (current) use of oral hypoglycemic drugs; Z79.02 Long term (current) use of antithrombotics/antiplatelets; Z79.82 Long term (current) use of aspirin; Z79.4 Long term (current) use of insulin; Z79.899 Other long term (current) drug therapy; Z82.49 Family history of ischemic heart disease and other diseases of the circulatory system
CPT/HCPCS: 36415; 71046; 80048; 80053; 81003; 81015; 83605; 83880; 84484; 85025; 85610; 85730; 86140; 87040; 87086; 87899; 90670; 90732; 93005; 99284; A9270-GY; G8978-GP-CH; G8979-GP-CH; G8980-GP-CH; J0456; J0696; J1650

== ENCOUNTER 2024-02-09 14:52 | Inpatient (IN) ==
[2024-02-09 15:47] LABS: ABS Basophils 0.2 10^3/uL (0.0-0.1); ABS Eosinophils 0.3 10^3/uL (0.0-0.5); ABS Lymphocytes 1.6 10^3/uL (1.0-4.8); ABS Monocytes 0.3 10^3/uL (0.0-0.9); ABS Neutrophils 5.9 10^3/uL (1.5-7.6); Eosinophil % 3.6 %; Hematocrit 44.4 % (35-45); Hemoglobin 14.6 g/dL (11.5-14.3); Lymphocyte % 19.2 %; Mean Corpuscular Hemoglobin 28.8 pg (27-33); Mean Corpuscular Hgb Conc 32.8 g/dL (31-36); Mean Corpuscular Volume 87.7 fL (80-97); Mean Platelet Volume 9.5 fL (7.5-11.2); Nucleated Red Blood Cells % 0.1 %/100WBC (0.0-0.8); Platelet Count 263 10^3/uL (150-450); Red Blood Count 5.06 10^6/uL (3.63-4.92); Red Cell Distribution Width 16.2 % (12-17); White Blood Count 8.2 10^3/uL (3.8-11.8)
[2024-02-09 15:53] LABS: INR 1.07 (0.85-1.14)
[2024-02-09 16:34] LABS: Albumin 3.9 g/dL (3.2-5.2); Albumin/Globulin Ratio 1.2 (1-3); Creatinine, Serum 1.2 mg/dL (0.51-0.95); Globulin 3.3 g/dL (2-4); Potassium 4.5 mmol/L (3.5-5.0); Total Bilirubin 0.7 mg/dL (0.2-1.0); Total Protein 7.2 g/dL (6.4-8.9); eGFR CKD-EPI 49.3 (>60)
[2024-02-09] MEDS: Furosemide 40 mg/4 ml IV VIAL IV ONE (17:23)
[2024-02-09 17:46] LABS: High Sensitivity Troponin 1 Hr 51 pg/mL (<15)
[2024-02-09] MEDS: Nitro 2% OINT (Nitroglycerin) 1 INCH/PAK TOPICAL ONE (17:53)
[2024-02-09] MEDS: Enoxaparin 40 MG/0.4 ML SYR SUBCUT SCH (22:31)
[2024-02-10] MEDS: cefTRIAXone 1 gm/50 mL D5W 1 GM/50 ML BAG IV SCH (03:07)
[2024-02-10] MEDS ORDERED: Dextrose 50% Syringe 50 ml 25 GM/50 ML SYRINGE IV PUSH PRN (05:32)
[2024-02-10 06:19] LABS: ABS Basophils 0.1 10^3/uL (0.0-0.1); ABS Eosinophils 0.2 10^3/uL (0.0-0.5); ABS Lymphocytes 1.2 10^3/uL (1.0-4.8); ABS Monocytes 0.5 10^3/uL (0.0-0.9); ABS Neutrophils 6.7 10^3/uL (1.5-7.6); ABS Nucleated RBC 0.01 10^3/ul; Eosinophil % 2.1 %; Hematocrit 42.1 % (35-45); Lymphocyte % 13.7 %; Mean Corpuscular Hemoglobin 28.9 pg (27-33); Mean Corpuscular Hgb Conc 33.2 g/dL (31-36); Mean Corpuscular Volume 86.9 fL (80-97); Mean Platelet Volume 9.5 fL (7.5-11.2); Nucleated Red Blood Cells % 0.1 %/100WBC (0.0-0.8); Platelet Count 249 10^3/uL (150-450); Red Blood Count 4.84 10^6/uL (3.63-4.92); Red Cell Distribution Width 16.3 % (12-17); White Blood Count 8.7 10^3/uL (3.8-11.8)
[2024-02-10 07:12] LABS: Calcium 8.8 mg/dL (8.6-10.3); Creatinine, Serum 1.59 mg/dL (0.51-0.95); Magnesium 1.5 mg/dL (1.9-2.7); Potassium 4.5 mmol/L (3.5-5.0); eGFR CKD-EPI 35.2 (>60)
[2024-02-10 08:26] LABS: Ferritin 24.4 ng/mL (11-307)
[2024-02-10] MEDS: Nystatin TOP POWDER 15 GM BTL TOPICAL SCH (08:29)
[2024-02-10] MEDS: Furosemide 40 mg/4 ml IV VIAL IV SLOW PU SCH (08:29)
[2024-02-10] MEDS ORDERED: DULoxetine DR 60 mg CAP PO SCH (09:00)
[2024-02-10] MEDS ORDERED: Ferric Gluconate IV 250 MG in NS 0.9% 250 ml 200 ML IVPB SCH (10:00)
[2024-02-10] MEDS: Iron Sucrose 200 MG in NS 0.9% 100 ml IVPB SCH (10:33)
[2024-02-10] MEDS: Sulfur Hexaflouride MICROSPHR 25 MG VIAL IV PRN (11:10)
[2024-02-10 14:33] LABS: C Reactive Protein 9.24 mg/L (<8.01)
[2024-02-10 14:54] LABS: Calcium 8.9 mg/dL (8.6-10.3); Creatinine, Serum 1.84 mg/dL (0.51-0.95); Potassium 4.9 mmol/L (3.5-5.0); eGFR CKD-EPI 29.5 (>60)
[2024-02-11 06:21] LABS: Hematocrit 43.9 % (35-45); Hemoglobin 14.2 g/dL (11.5-14.3); Mean Corpuscular Hemoglobin 28.5 pg (27-33); Mean Corpuscular Hgb Conc 32.3 g/dL (31-36); Mean Platelet Volume 10.2 fL (7.5-11.2); Platelet Count 268 10^3/uL (150-450); Red Blood Count 4.98 10^6/uL (3.63-4.92); Red Cell Distribution Width 16.4 % (12-17); White Blood Count 9.4 10^3/uL (3.8-11.8)
[2024-02-11 06:39] LABS: Calcium 9.1 mg/dL (8.6-10.3); Creatinine, Serum 2.34 mg/dL (0.51-0.95); Magnesium 1.7 mg/dL (1.9-2.7); Potassium 5.2 mmol/L (3.5-5.0); eGFR CKD-EPI 22.1 (>60)
[2024-02-11] MEDS: Magnesium Sulfate 2 gm BAG 2 GM/50 ML BAG IVPB ONE (08:43)
[2024-02-11] MEDS: Lactated Ringers 1000 ml BAG 500 ML IV ONE (11:27)
[2024-02-11] MEDS: Ondansetron 4 mg VIAL 2 MG/ML 2 ml VIAL IV ONE (20:52)
[2024-02-11] MEDS: Enoxaparin 30 MG/0.3 ML SYR SUBCUT SCH (21:50)
[2024-02-12] MEDS: Prochlorperazine 5 mg/ml 2 ml VIAL (10 mg) IV PRN (01:29)
[2024-02-12 06:32] LABS: ABS Basophils 0.1 10^3/uL (0.0-0.1); ABS Lymphocytes 1.8 10^3/uL (1.0-4.8); ABS Monocytes 0.8 10^3/uL (0.0-0.9); ABS Neutrophils 8.5 10^3/uL (1.5-7.6); ABS Nucleated RBC 0.07 10^3/ul; Eosinophil % 0.3 %; Hematocrit 43.3 % (35-45); Hemoglobin 14.1 g/dL (11.5-14.3); Lymphocyte % 15.7 %; Mean Corpuscular Hemoglobin 28.3 pg (27-33); Mean Corpuscular Hgb Conc 32.5 g/dL (31-36); Mean Platelet Volume 9.8 fL (7.5-11.2); Nucleated Red Blood Cells % 0.6 %/100WBC (0.0-0.8); Platelet Count 257 10^3/uL (150-450); Red Blood Count 4.98 10^6/uL (3.63-4.92); Red Cell Distribution Width 16.1 % (12-17); White Blood Count 11.1 10^3/uL (3.8-11.8)
[2024-02-12 06:57] LABS: Calcium 9.1 mg/dL (8.6-10.3); Creatinine, Serum 2.08 mg/dL (0.51-0.95); Magnesium 2.2 mg/dL (1.9-2.7); Potassium 4.8 mmol/L (3.5-5.0); eGFR CKD-EPI 25.5 (>60)
[2024-02-12] MEDS: Lactated Ringers 1000 ml BAG 500 ML IV SCH (09:37)
[2024-02-12 15:41] LABS: Anion Gap 5 mmol/L (2-16); Blood Urea Nitrogen 44 mg/dL (6-24); CO2 Carbon Dioxide 27 mmol/L (22-32); Chloride 102 mmol/L (101-111); Creatinine, Serum 2.09 mg/dL (0.51-0.95); Glucose 200 mg/dL (70-100); Sodium 134 mmol/L (135-145); eGFR CKD-EPI 25.3 (>60)
[2024-02-13 08:12] LABS: Calcium 8.4 mg/dL (8.6-10.3); Creatinine, Serum 1.78 mg/dL (0.51-0.95); Potassium 4.5 mmol/L (3.5-5.0); eGFR CKD-EPI 30.7 (>60)
[2024-02-13 13:20] VITALS: BP 135/61
== END 2024-02-13 15:03 | disposition home or self-care (01) | DRG 291 ==
LOC: EDHOLD 14:52 → ED 14:52 → SUATTDRO 19:19 → MEDTELE 02-10 00:16
PROVIDERS: ADMIT Student in an Organized Health Care Education/Training Program; ATTEND Internal Medicine